=== PATIENT | male | born 1995 | race Caucasian/White ===

== ENCOUNTER 2017-03-24 15:47 | Emergency (ER) | payer OTHER ==
[~2017-03-24] VITALS: Ht 160 cm; Wt 61.5 kg
[~2017-03-24 15:47] MED LIST: CORTIS10A AD; HYDR4CRE PR
[2017-03-24 15:50] VITALS: BP 127/68; PULSE 62; RESP 18; TEMP 98.2; O2SAT 97
[2017-03-24 16:37] VITALS: BP 139/91; PULSE 70; RESP 18; O2SAT 99
--- NOTE | 2017-03-24 16:48 | RADRPT ---
EXAM DATE/TIME: 03/24/2017 16:14 [facility] COMPARISON: No previous studies available for comparison. 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 MEDICAL HISTORY : None. SURGICAL HISTORY : None. ENCOUNTER: Initial ACUITY: 1 day PAIN SCORE: 9/10 LOCATION: Bilateral lumbar spine FINDINGS: Three views of the lumbar spine demonstrate five [id number] lumbar vertebral bodies. No fracture or compression deformity is present. There is no anterolisthesis or retrolisthesis. No significant a rthropathy is present. The visualized paraspinous soft tissues and pelvic bones demonstrate no acute abnormality. CONCLUSION: Normal examination of the lumbar spine. Josesito Fisher MD on March 24, 2017 at 16:45 Board Certified Radiologist. This report was verified electronically.
--- NOTE | 2017-03-24 16:49 | RADRPT ---
EXAM DATE/TIME: 03/24/2017 16:15 [facility] COMPARISON: No previous studies available for comparison. 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 MEDICAL HISTORY : None. SURGICAL HISTORY : None. ENCOUNTER: Initial ACUITY: 1 day PAIN SCORE: 9/10 LOCATION: Bilateral thoracic spine FINDINGS: 3 views of the thoracic spine demonstrate no fracture or compression deformity. There is no anterolis thesis or retrolisthesis. Disc heights are preserved. Visualized surrounding structures demonstrate no acute abnormality. CONCLUSION: Examination of the thoracic spine is within normal limits. Josesito Fisher MD on March 24, 2017 at 16:47 Board Certified Radiologist. This report was verified electronically.
--- NOTE | 2017-03-24 16:50 | RADRPT ---
EXAM DATE/TIME: 03/24/2017 16:17 [facility] COMPARISON: No previous studies available for comparison. 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 MEDICAL HISTORY : None. SURGICAL HISTORY : None. ENCOUNTER: Initial ACUITY: 1 day PAIN SCORE: 9/10 LOCATION: Bilateral buttock FINDINGS: 3-view examination of the sacrum and coccyx demonstrates no evidence of fracture or malalignment. Th e sacral ala and foramina appear symmetric and intact. The coccyx appears unremarkable. The prevert ebral soft tissues are within normal limits. CONCLUSION: Examination is within normal limits. Josesito Fisher MD on March 24, 2017 at 16:47 Board Certified Radiologist. This report was verified electronically.
--- NOTE | 2017-03-24 17:01 | PD ---
HPI Chief Complaint: Fall Time Seen by Provider: 16:00 Travel History International Travel<30 days: No Contact w/Intl Traveler<30days: No Traveled to known affect area: No History of Present Illness HPI 22-year-old male with chief complaint of low back pain status post fall from approximately 5 feet. 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 He has pain in the mid to low back and tailbone. He also has pain in the right hand. He denies head injury or loss of consciousness. He denies headache, chest pain, abdominal pain, numbness/weakness/tingling in the extremities. PFSH Past Medical History Medical History: Denies Significant Hx Hx Anticoagulant Therapy: No Cardiovascular Problems: No Chemotherapy: No Cerebrovascular Accident: No Diabetes: No Diminished Hearing: No Respiratory: No Integumentary: Yes (used to be on meds for ancne) Influenza Vaccination: No Past Surgical History Surgical History: No Previous Surgery Oral Surgery: Yes (wisdom teeth extracted) Social History Alcohol Use: Yes (COUPLE TIMES PER MONTH) Tobacco Use: No Substance Use: No Allergies-Medications (Allergen,Severity, Reaction): Coded Allergies: Dog Dander (Verified Allergy, Severe, ITCHY EYES, 03/24/17) Augmentin (Verified Adverse Reaction, Severe, Diarrhea, 03/24/17) Reported Meds & Prescriptions Reported Meds & Active Scripts Active No Active Prescriptions or Reported Medications Review of Systems Except as stated in HPI: all other systems reviewed are Neg General / Constitutional: No: Fever Eyes: No: Visual changes HENT: No: Headaches Cardiovascular: No: Chest Pain or Discomfort Respiratory: No: Shortness of Breath Gastrointestinal: No: Abdominal Pain Genitourinary: No: Dysuria Musculoskeletal: Positive: Pain Physical Exam Narrative GENERAL: Alert, well-appearing male, no acute distress. Patient brought in on backboard and c-collar. SKIN: Focused skin assessment warm/dry. No areas of abrasions, hematomas, lacerations. HEAD: Atraumatic. Normocephalic. EYES: Pupils equal and round. No scleral icterus. No injection or drainage. ENT: No nasal bleeding or discharge. Mucous membranes pink and moist. NECK: Trachea midline. No JVD. No midline cervical spine tenderness CARDIOVASCULAR: Regular rate and rhythm. No murmur appreciated. No chest wall or rib tenderness. RESPIRATORY: No accessory muscle use. Clear to auscultation. Breath sounds equal bilaterally. GASTROINTESTINAL: Abdomen soft, non-tender, nondistended. Hepatic and splenic margins not palpable. MUSCULOSKELETAL: No obvious deformities. No clubbing. No cyanosis. No edema. Right hand: Mild TTP first metatarsal. Extremity is neurovascular intact with full range of motion and strength. NEUROLOGICAL: Awake and alert. No obvious cranial nerve deficits. Motor grossly within normal limits. Normal speech. 5 out of 5 strength in upper and lower extremities. Normal sensation. Dorsiflex and plantarflex intact. Normal sensation. BACK: No CVA tenderness. No rash. Point tenderness to the midline thoracic/ lumbar/coccyx. PSYCHIATRIC: Appropriate mood and affect; insight and judgment normal. Data Data Last Documented VS Vital Signs Date Time Temp Pulse Resp B/P Pulse Ox O2 Delivery O2 Flow Rate FiO2 03/24/17 16:37 70 18 139/91 99 Room Air 03/24/17 15:50 98.2 Orders Spine, Thoracic-Ap/Lat/Sw(3vw) (03/24/17 ) Spine, Lumbar - Ltd (Ap & Lat) (03/24/17 ) Sacrum And Coccyx (03/24/17 ) Ketorolac Inj (Toradol Inj) (03/24/17 17:15) MDM Medical Decision Making Medical Screen Exam Complete: Yes Emergency Medical Condition: Yes Differential Diagnosis Thoracic fracture, lumbar fracture, sacral/coccyx fracture, lumbar strain, contusion Narrative Course 22-year-old male with chief complaint of low back pain status post fall from approximately 5 feet. Patient denies head injury or loss of consciousness. Patient was brought in by EMS on backboard and c-collar. Patient was log rolled and removed from backboard. Patient has a normal neurologic exam. He does have point tenderness in the lower thoracic, lumbar spine, coccyx region. X-rays of the thoracic, lumbar, sacrum/coccyx pending X-ray of thoracic, lumbar, sacrum coccyx: Negative for acute fracture. Normal alignment. Diagnostic findings discussed with patient. Patient was given a shot of Toradol for which she reports improvement. She was ambulatory and ready for discharge. Diagnosis Primary Impression: Lumbar strain Qualified Code: S39.012A - Strain of lumbar region, initial encounter Additional Impression: Injury of coccyx Qualified Code: S39.92XA - Injury of coccyx, initial encounter Additional Instructions: Take [id number] Motrin 407529 milligrams by mouth every 6-8 hours as needed for pain. Use ice 20 minutes on and 20 minutes off to the low back. Take a muscle relaxer as needed for muscle spasms. Avoid heavy lifting and strenuous activity. Lopid her primary care provider. Scripts Methocarbamol (Robaxin)500 Mg Eeg327 Mg PO TID PRN (MUSCLE SPASM) #12 TAB Prov:Marlin Davis 03/24/17 Disposition: 01 DISCHARGE HOME Condition: Stable Marlin Davis Mar 24, 2017 17:01
[2017-03-24] MEDS ORDERED: ROBA500T PO (17:12)
[2017-03-24] MEDS ORDERED: KETOROLAC TROMETHAMINE 60 MG/2 ML (IM) VIAL IM ONE (17:15)
== END 2017-03-24 17:49 | disposition home or self-care (01) ==
LOC: PHEFT 15:47
DX: S39.012A Strain of muscle, fascia and tendon of lower back, initial encounter (principal); S39.92XA Unspecified injury of lower back, initial encounter; M54.6 Pain in thoracic spine; M79.641 Pain in right hand; W17.89XA Other fall from one level to another, initial encounter; Y99.0 Civilian activity done for income or pay
CPT/HCPCS: 72072; 72100; 72220; 96372; 99284; J1885